=== PATIENT | male | born 1960 | race Caucasian/White ===

== ENCOUNTER 2017-05-11 17:52 | Inpatient (IN) | payer OTHER ==
[2017-05-11] VITALS (7 sets, daily range): BP systolic 110–209; BP diastolic 50–77; PULSE 126–143; RESP 16–20; TEMP 98.5–99.1; O2SAT 93–97
[2017-05-11] MEDS ORDERED: SODIUM CHLOR 0.9% 1000 ML INJ 1,000 ML IV ONE (18:15)
[2017-05-11] MEDS ORDERED: LABETALOL HCL 100 MG/20 ML VIAL IV PUSH ONE ×2 (18:15→19:00)
--- NOTE | 2017-05-11 18:27 | PD ---
HPI Chief Complaint: Cold / Flu Symptoms Time Seen by Provider: 18:05 Travel History International Travel<30 days: No Contact w/Intl Traveler<30days: No Traveled to known affect area: No History of Present Illness HPI PATIENT HAS BEEN FEELING SICK FOR PAST 3 WEEKS DURING WHICH TIME HE WAS DIAGNOSED WITH BRONCHITIS GIVEN [facility]PAK INITIALLY FOLLOWED BY MARY LOU AND FINALLY POSSIBLY BUZZ CASTRO WELL. PATIENT PRESENTS TODAY WITH OCC COUGH, SORE THROAT, CONGESTION, AND PALPITATIONS WHICH STARTED ABOUT 2 HRS AGO AND CHILLS WHICH STARTED 1 HR AGO. PCP IS NGHIA CHATTERJEE PULM:TANISHA ALL:DENIES PMHX:DM, HTN, GERD, AND BEING EVALUATED FOR COPD PSHX:T&A PFSH Past Medical History Diabetes: Yes Social History Tobacco Use: No Allergies-Medications (Allergen,Severity, Reaction): Coded Allergies: No Known Allergies (Unverified , 05/11/17) Reported Meds & Prescriptions Reported Meds & Active Scripts Active Reported Pioglitazone (Pioglitazone HCl) 30 Mg Tab 30 Mg PO DAILY Omeprazole 20 Mg Tab 20 Mg PO DAILY Trulicity Inj (Dulaglutide Inj) 1.5 Mg/0.5 Ml Pen 1.5 Mg SQ Q7D Novolin R Inj (Insulin Human Regular) 1,000 Unit/10 Ml Vial 100 Units SQ TID PRN Lisinopril-Hctz 10-12.5 Mg Tab 1 Tab PO DAILY Metoprolol-Hydrochlorothiazide 50-25 Mg Tab 1 Tab PO DAILY Review of Systems Except as stated in HPI: all other systems reviewed are Neg General / Constitutional: Positive: Chills Eyes: No: Visual changes HENT: Positive: Sore Throat, Rhinorrhea Cardiovascular: Positive: Palpitations Respiratory: Positive: Cough Gastrointestinal: No: Abdominal Pain Genitourinary: No: Dysuria Musculoskeletal: No: Pain Skin: No Rash Neurologic: No: Weakness Psychiatric: No: Depression Endocrine: No: Polydipsia Hematologic/Lymphatic: No: Easy Bruising Physical Exam Narrative GENERAL: patient has chills (repeat temp is oral 99.1)....TACHYCARDIC 140, BP= 209/77 SKIN: Warm and dry, no rashes noted thorughout body... HEAD: Atraumatic. Normocephalic. EYES: Pupils equal and round. No scleral icterus. No injection or drainage. ENT: No nasal bleeding or discharge. Mucous membranes pink and moist. NECK: Trachea midline. No JVD. CARDIOVASCULAR: Regular rhythm, tachycardic rate RESPIRATORY: No accessory muscle use. Clear to auscultation. RLL RONCHI/ CRACKLES GASTROINTESTINAL: Abdomen OBESE BUT soft, non-tender, nondistended. MUSCULOSKELETAL: Extremities without clubbing, cyanosis, or edema. No obvious deformities. NEUROLOGICAL: Awake and alert. No obvious cranial nerve deficits. Motor grossly within normal limits. Five out of 5 muscle strength in the arms and legs. Normal speech. PSYCHIATRIC: Appropriate mood and affect; insight and judgment normal. Data Data Last Documented VS Vital Signs Date Time Temp Pulse Resp B/P (MAP) Pulse Ox O2 Delivery O2 Flow Rate FiO2 05/11/17 20:32 136 16 137/63 (87) 93 05/11/17 18:45 Room Air 05/11/17 17:56 99.1 Orders Orders Electrocardiogram (05/11/17 18:15) Complete Blood Count With Diff (05/11/17 18:15) Comprehensive Metabolic Panel (05/11/17 18:15) Troponin I (05/11/17 18:15) B-Type Natriuretic Peptide (05/11/17 18:15) Prothrombin Time / Inr (Pt) (05/11/17 18:15) Act Partial Throm Time (Ptt) (05/11/17 18:15) Lipase (05/11/17 18:15) Thyroid Stimulating Hormone (05/11/17 18:15) Group A Rapid Strep Screen (05/11/17 18:15) Influenzae A/B Antigen (05/11/17 18:15) Iv Access Insert/Monitor (05/11/17 18:15) Ecg Monitoring (05/11/17 18:15) Oximetry (05/11/17 18:15) Sodium Chlor 0.9% 1000 Ml Inj (Ns 1000 M (05/11/17 18:15) Labetalol Inj (Trandate Inj) (05/11/17 18:15) Labetalol Inj (Trandate Inj) (05/11/17 19:00) Strep Culture (Group A) (05/11/17 18:30) Ct Pulmonary Angiogram (05/11/17 19:22) Iohexol 350 Inj (Omnipaque 350 Inj) (05/11/17 19:59) Lactic Acid Sepsis Protocol (05/11/17 20:30) Blood Culture (05/11/17 20:30) Blood Glucose (05/11/17 20:30) Oxygen Administration (05/11/17 20:30) Piperacil-Tazo 4.5 Gm Premix (Zosyn 4.5 (05/11/17 20:30) Azithromycin Inj (Zithromax Inj) (05/11/17 20:30) Doxycycline Inj (Vibramycin Inj) (05/11/17 20:45) Admit To Inpatient (05/11/17 ) Vital Signs (Adult) Q4H (05/11/17 21:13) Activity Oob With Assistance (05/11/17 21:13) Tube Bender / Telemetry .CONTINUOUS (05/11/17 21:13) Sodium Chloride 0.9% Flush (Ns Flush) (05/11/17 21:15) Sodium Chloride 0.9% Flush (Ns Flush) (05/12/17 09:00) Basic Metabolic Panel (Bmp) (05/12/17 06:00) Complete Blood Count With Diff (05/12/17 06:00) Pt Request For Service (05/11/17 21:13) Case Management Consult (05/11/17 21:13) Naloxone Inj (Narcan Inj) (05/11/17 21:15) Inpatient Certification (05/11/17 ) Albuterol-Ipratropium Neb (Duoneb Neb) (05/11/17 22:00) Albuterol-Ipratropium Neb (Duoneb Neb) (05/11/17 21:15) Piperacil-Tazo 4.5 Gm Premix (Zosyn 4.5 (05/12/17 02:00) Consult Pulmonology (05/11/17 ) Admit Order (Ed Use Only) (05/11/17 21:21) Labs Laboratory Tests Test 05/11/17 18:30 05/11/17 20:45 White Blood Count 14.9 TH/MM3 Red Blood Count 4.29 MIL/MM3 Hemoglobin 12.4 GM/DL Hematocrit 36.7 % Mean Corpuscular Volume 85.7 FL Mean Corpuscular Hemoglobin 29.0 PG Mean Corpuscular Hemoglobin Concent 33.8 % Red Cell Distribution Width 14.5 % Platelet Count 363 TH/MM3 Mean Platelet Volume 6.7 FL Neutrophils (%) (Auto) 82.3 % Lymphocytes (%) (Auto) 8.3 % Monocytes (%) (Auto) 7.4 % Eosinophils (%) (Auto) 0.3 % Basophils (%) (Auto) 1.7 % Neutrophils # (Auto) 12.2 TH/MM3 Lymphocytes # (Auto) 1.2 TH/MM3 Monocytes # (Auto) 1.1 TH/MM3 Eosinophils # (Auto) 0.0 TH/MM3 Basophils # (Auto) 0.3 TH/MM3 CBC Comment AUTO DIFF Differential Total Cells Counted 100 Neutrophils % (Manual) 77 % Band Neutrophils % 10 % Lymphocytes % 12 % Monocytes % 1 % Neutrophils # (Manual) 13.0 TH/MM3 Differential Comment FINAL DIFF MANUAL Platelet Estimate NORMAL Platelet Morphology Comment NORMAL Red Cell Morphology Comment NORMAL Prothrombin Time 11.3 SEC Prothromb Time International Ratio 1.1 RATIO Activated Partial Thromboplast Time 26.4 SEC Blood Urea Nitrogen 19 MG/DL Creatinine 1.10 MG/DL Random Glucose 238 MG/DL Total Protein 8.0 GM/DL Albumin 3.5 GM/DL Calcium Level 9.4 MG/DL Alkaline Phosphatase 89 U/L Aspartate Amino Transf (AST/SGOT) 20 U/L Alanine Aminotransferase (ALT/SGPT) 29 U/L Total Bilirubin 0.5 MG/DL Sodium Level 133 MEQ/L Potassium Level 4.4 MEQ/L Chloride Level 96 MEQ/L Carbon Dioxide Level 29.8 MEQ/L Anion Gap 7 MEQ/L Estimat Glomerular Filtration Rate 69 ML/MIN Troponin I LESS THAN 0.02 NG/ML B-Type Natriuretic Peptide 3 PG/ML Lipase 190 U/L Thyroid Stimulating Hormone 3rd Gen 1.900 uIU/ML Lactic Acid Level 1.9 mmol/L [facility] Medical Decision Making Medical Screen Exam Complete: Yes Emergency Medical Condition: Yes Medical Record Reviewed: Yes Interpretation(s) PULSE OX : ON ROOM AIR, EXCELLENT PLETH WAVE, 96% NORMAL PULSE OX EKG: SINUS TACHY, 137, NORMAL INTERVALS, NO STEMI PATTERN Differential Diagnosis STREP V FLU V PNA V PERICARDIAL EFFUSION V PE Narrative Course DUE TO TACHYCARDIA AND HYPERTENSION PATIENT WILL BE GIVEN SOME FLUID IV WELL A LOW DOSE OF LABETALOL. Critical Care Narrative CRITICAL CARE NOTE: With evaluation of the patient, labs, EKG, receipt of radiologic studies, administration of medications, reevaluation the patient and discussion of the patient with the admitting physicians, the total critical care time was [30] minutes. Time to perform other separately billable procedures was not included in the critical care time. Sepsis Criteria SIRS Criteria (2 or more): Temp > 100.9 or < 96.8, Heart rate over 90, WBC > 39087, < 4000 or > 10% bands Diagnosis Primary Impression: LLL pneumonia Qualified Codes: J18.1 - Lobar pneumonia, unspecified organism Additional Impressions: tachycardia hypoxemia Admitting Information Admitting Physician Requests: Observation Kevin Tinajero MD May 11, 2017 18:27
[2017-05-11 18:53] LABS: AUTOMATED NEUTROPHIL # 12.2 TH/MM3 (1.8-7.7); BASOPHIL # 0.3 TH/MM3 (0-0.2); BASOPHIL % 1.7 % (0.0-2.0); EOSINOPHIL % 0.3 % (0.0-4.0); HEMATOCRIT 36.7 % (39.0-51.0); HEMOGLOBIN 12.4 GM/DL (13.0-17.0); LYMPH % 8.3 % (9.0-44.0); LYMPHOCYTE # 1.2 TH/MM3 (1.0-4.8); MEAN CELL VOLUME 85.7 FL (80.0-100.0); MEAN CORPUSCULAR HGB CONC 33.8 % (32.0-36.0); MEAN PLATELET VOLUME 6.7 FL (7.0-11.0); MONO % 7.4 % (0.0-8.0); MONOCYTE # 1.1 TH/MM3 (0-0.9); NEUT % 82.3 % (16.0-70.0); PLATELET COUNT 363 TH/MM3 (150-450); RED BLOOD COUNT 4.29 MIL/MM3 (4.50-5.90); RED CELL DISTRIBUTION WIDTH 14.5 % (11.6-17.2); WHITE BLOOD COUNT 14.9 TH/MM3 (4.0-11.0)
[2017-05-11 19:03] LABS: CHLORIDE 96 MEQ/L (98-107); SODIUM (NA) 133 MEQ/L (136-145)
[2017-05-11 19:05] LABS: INTERNATIONAL NORMALIZED RATIO 1.1 RATIO; PROTHROMBIN TIME - PATIENT 11.3 SEC (9.8-11.6)
[2017-05-11 19:06] LABS: CALCIUM 9.4 MG/DL (8.5-10.1)
[2017-05-11 19:07] LABS: ALBUMIN 3.5 GM/DL (3.4-5.0); BICARBONATE 29.8 MEQ/L (21.0-32.0); BLOOD UREA NITROGEN 19 MG/DL (7-18); GLUCOSE,RANDOM 238 MG/DL (74-106); LIPASE 190 U/L (73-393)
[2017-05-11 19:08] LABS: BANDS 10 % (0-6); LYMPHOCYTES 12 % (9-44); MONOCYTES 1 % (0-8); POLYS (SEG NEUTROPHILS) 77 % (16-70)
[2017-05-11 19:10] LABS: ALT (GPT) 29 U/L (12-78); AST (GOT) 20 U/L (15-37); GLOMERULAR FILTRATION RATE 69 ML/MIN (>89)
[2017-05-11 19:11] LABS: TOTAL BILIRUBIN ADULT 0.5 MG/DL (0.2-1.0)
[2017-05-11 19:13] LABS: ALKALINE PHOSPHATASE 89 U/L (45-117)
[2017-05-11 19:15] LABS: TROPONIN I LESS THAN 0.02 NG/ML (0.02-0.05)
[2017-05-11] MEDS ORDERED: METO50TA10 PO (19:30)
[2017-05-11] MEDS ORDERED: NOVORP2 SQ (19:30)
[2017-05-11] MEDS ORDERED: LISI10TA PO (19:30)
[2017-05-11] MEDS ORDERED: DULA0.5I SQ (19:30)
[2017-05-11] MEDS ORDERED: PIOG30TA4 PO (19:30)
[2017-05-11] MEDS ORDERED: OMEP20TA93 PO (19:30)
--- NOTE | 2017-05-11 19:33 | EKG ---
Date Performed: 05/11/2017 Time Performed: 18:10:42 PTAGE: 56 years EKG: SINUS TACHYCARDIA ABNORMAL RHYTHM ECG Compared to prior electrocardiogram, rate has increas ed PREVIOUS TRACING : 08/26/2010 09.17 DOCTOR: Enzo Andersen Interpretating Date/Time 05/11/2017 19:32:50
[2017-05-11] MEDS ORDERED: IOHEXOL 350 MG/ML 10 ML VIAL (for RAD DIAG) IVCONTRAST ONE (19:59)
--- NOTE | 2017-05-11 20:14 | RADRPT ---
EXAM DATE/TIME: 05/11/2017 19:49 [facility] COMPARISON: No previous studies available for comparison. INDICATIONS : Fever and cough x 3 weeks. IV CONTRAST: 100 cc Omnipaque 350 (iohexol) IV RADIATION DOSE: 21.75 CTDIvol (mGy) ; Patient body habitus MEDICAL HISTORY : Diabetes mellitus type 2. Gastroesophageal reflux disease. Hypertension. SURGICAL HISTORY : None. ENCOUNTER: Initial ACUITY: 3 weeks PAIN SCALE: 0/10 LOCATION: chest TECHNIQUE: Volumetric scanning of the chest was performed using a pulmonary embolism protocol MIP images were re constructed. Using automated exposure control and adjustment of the mA and/or kV according to patien t size, radiation dose was kept as low as reasonably achievable to obtain optimal diagnostic quality images. DICOM format image data is available electronically for review and comparison. Follow-up recommendations for detected pulmonary nodules are based at a minimum on nodule size and pa tient risk factors according to Fleischner Society Guidelines. FINDINGS: PULMONARY ARTERIES: No filling defects are seen in the pulmonary arteries through the segmental level. LUNGS: There is an intra-alveolar infiltrate within the left base. Remaining lungs are clear. Calcified gran uloma within the left midlung. PLEURAE: There is no pleural thickening or pleural effusion. MEDIASTINUM: There is good visualization of the great vessels of the middle mediastinum. No evidence of mediastin al or hilar adenopathy/mass. MUSCULOSKELETAL: Within normal limits for patient age. MISCELLANEOUS: Calcified gallstones partially visualized. CONCLUSION: 1. No pulmonary emboli. 2. Left lower lobe infiltrate. 3. Cholelithiasis. Jose Roberto Laurent Jr., MD on May 11, 2017 at 20:11 Board Certified Radiologist. This report was verified electronically.
[2017-05-11] MEDS ORDERED: AZITHROMYCIN INJ 500 MG in SODIUM CHLOR 0.9% 250 ML INJ 250 ML IV STA (20:30)
[2017-05-11] MEDS ORDERED: PIPERACIL-TAZO 4.5 GM PREMIX 100 ML IV STA (20:30)
[2017-05-11] MEDS ORDERED: DOXYCYCLINE INJ 100 MG in SODIUM CHLORIDE 0.9% INJ 100 ML IV ONE (20:45)
[2017-05-11] MEDS ORDERED: RESP: ALBUTEROL 2.5 MG/IPRATROPIUM 0.5 MG NEB (PRN) NEB (21:15)
[2017-05-11] MEDS ORDERED: NALOXONE HCL 0.4 MG/ML AMP IV PUSH PRN (21:15)
[2017-05-11] MEDS ORDERED: SODIUM CHLORIDE 0.9% FLUSH 10 ML FLUSH IV FLUSH PRN (21:15)
[2017-05-11] MEDS: RESP: ALBUTEROL 2.5 MG/IPRATROPIUM 0.5 MG NEB (SCH) NEB (22:19)
[2017-05-12] VITALS (11 sets, daily range): BP systolic 112–144; BP diastolic 65–77; PULSE 104–136; RESP 18–20; TEMP 97.9–99.8; O2SAT 92–97
[2017-05-12] MEDS: PIPERACIL-TAZO 4.5 GM PREMIX 100 ML IV SCH ×2 (01:21→08:00)
[2017-05-12] MEDS: RESP: ALBUTEROL 2.5 MG/IPRATROPIUM 0.5 MG NEB (SCH) NEB ×4 (03:47→21:37)
[2017-05-12 06:58] LABS: BICARBONATE 31.1 MEQ/L (21.0-32.0); CALCIUM 8.8 MG/DL (8.5-10.1)
[2017-05-12 07:00] LABS: AUTOMATED NEUTROPHIL # 19.7 TH/MM3 (1.8-7.7); BASOPHIL % 0.1 % (0.0-2.0); EOSINOPHIL % 0.1 % (0.0-4.0); HEMATOCRIT 34.9 % (39.0-51.0); HEMOGLOBIN 11.5 GM/DL (13.0-17.0); LYMPH % 8.9 % (9.0-44.0); LYMPHOCYTE # 2.2 TH/MM3 (1.0-4.8); MEAN PLATELET VOLUME 7.3 FL (7.0-11.0); MONO % 9.3 % (0.0-8.0); MONOCYTE # 2.3 TH/MM3 (0-0.9); NEUT % 81.6 % (16.0-70.0); PLATELET COUNT 344 TH/MM3 (150-450); RED BLOOD COUNT 3.96 MIL/MM3 (4.50-5.90); RED CELL DISTRIBUTION WIDTH 15.4 % (11.6-17.2); WHITE BLOOD COUNT 24.2 TH/MM3 (4.0-11.0)
[2017-05-12 07:02] LABS: CREATININE 1.2 MG/DL (0.60-1.30)
[2017-05-12] MEDS: SODIUM CHLORIDE 0.9% FLUSH 10 ML FLUSH IV FLUSH SCH ×2 (09:00→21:00)
--- NOTE | 2017-05-12 11:26 | HHI.HP ---
[facility]Staff Admission Diagnosis LLL PNA, HYPOXEMIA, SINUS TACHYCARDIA& HTN Diagnoses: Chief Complaint: Cough, sore throat, congestion Travel History International Travel<30 Days: No Contact w/Intl Traveler <30 Da: No Traveled to Known Affected Are: No Review of Systems As per history of present illness, other systems reviewed by me and negative Past Family Social History Past Medical History Diabetes mellitus Hypertension Past Surgical History Tonsillectomy Reported Medications Reported Meds & Active Scripts Active Reported Pioglitazone (Pioglitazone HCl) 30 Mg Tab 30 Mg PO DAILY Omeprazole 20 Mg Tab 20 Mg PO DAILY Trulicity Inj (Dulaglutide Inj) 1.5 Mg/0.5 Ml Pen 1.5 Mg SQ Q7D Novolin R Inj (Insulin Human Regular) 1,000 Unit/10 Ml Vial 100 Units SQ TID PRN Lisinopril-Hctz 10-12.5 Mg Tab 1 Tab PO DAILY Metoprolol-Hydrochlorothiazide 50-25 Mg Tab 1 Tab PO DAILY Allergies: Coded Allergies: No Known Allergies (Unverified , 05/11/17) Active Ordered Medications Current Medications Medications (Trade) Dose Ordered Sig/James Route Start Time Stop Time Status Last Admin (NS Flush) 2 ml UNSCH PRN IV FLUSH 05/11/17 21:15 (NS Flush) 2 ml BID IV FLUSH 05/12/17 09:00 (Narcan Inj) 0.4 mg UNSCH PRN IV PUSH 05/11/17 21:15 (Duoneb Neb) 1 ampule Q6HR NEB NEB 05/11/17 22:00 05/12/17 09:15 (Duoneb Neb) 1 ampule Q2HR NEB PRN NEB 05/11/17 21:15 Piperacillin Sod/ Tazobactam Sod 100 ml @ 200 mls/hr Q6H IV 05/12/17 02:00 05/12/17 08:00 Family History Family history of diabetes. Denies family history of cancer. Social History The patient denies smoking, patient drinks alcohol rarely, denies illicit drug use. The patient is and has 1 grownup child. Physical Exam Vital Signs Vital Signs Date Time Temp Pulse Resp B/P (MAP) Pulse Ox O2 Delivery O2 Flow Rate FiO2 05/12/17 09:17 92 Nasal Cannula 21 05/12/17 08:00 99.8 114 20 141/68 (92) 94 05/12/17 04:00 97.9 108 18 112/65 (81) 95 05/12/17 03:47 95 21 05/12/17 00:15 136 05/12/17 00:00 97.9 108 18 112/65 (81) 95 05/11/17 22:19 94 Nasal Cannula 2.00 05/11/17 21:58 98.5 126 15 110/50 (70) 100 Nasal Cannula 2.00 05/11/17 21:55 Nasal Cannula 2.00 05/11/17 20:32 136 16 137/63 (87) 93 05/11/17 19:00 126 05/11/17 18:45 134 20 149/57 (87) 94 Room Air 05/11/17 18:45 138 18 161/70 (100) 96 Room Air 05/11/17 18:00 141 20 209/77 (121) Room Air 05/11/17 18:00 96 Room Air 05/11/17 17:56 99.1 143 20 169/71 (103) 97 Physical Exam GENERAL: This is a well-nourished, well-developed patient, in no apparent distress. SKIN: No rashes, ecchymoses or lesions. Cool and dry. HEAD: Atraumatic. Normocephalic. No temporal or scalp tenderness. EYES: Pupils equal round and reactive. Extraocular motions intact. No scleral icterus. No injection or drainage. ENT: Nose without bleeding, purulent drainage or septal hematoma. Throat without erythema, tonsillar hypertrophy or exudate. Uvula midline. Airway patent. NECK: Trachea midline. No JVD or lymphadenopathy. Supple, nontender, no meningeal signs. CARDIOVASCULAR: Regular rate and rhythm without murmurs, gallops, or rubs. RESPIRATORY: Clear to auscultation. Breath sounds equal bilaterally. No wheezes , rales, or rhonchi. GASTROINTESTINAL: Abdomen soft, non-tender, nondistended. No hepato-splenomegaly , or palpable masses. No guarding. MUSCULOSKELETAL: Extremities without clubbing, cyanosis, or edema. No joint tenderness, effusion, or edema noted. No calf tenderness. Negative Homans sign bilaterally. NEUROLOGICAL: Awake and alert. Cranial nerves II through XII intact. Motor and sensory grossly within normal limits. Five out of 5 muscle strength in all muscle groups. Normal speech. Laboratory Laboratory Tests Test 05/11/17 18:30 05/11/17 20:45 05/12/17 05:06 White Blood Count 14.9 24.2 Red Blood Count 4.29 3.96 Hemoglobin 12.4 11.5 Hematocrit 36.7 34.9 Mean Corpuscular Volume 85.7 88.0 Mean Corpuscular Hemoglobin 29.0 29.0 Mean Corpuscular Hemoglobin Concent 33.8 33.0 Red Cell Distribution Width 14.5 15.4 Platelet Count 363 344 Mean Platelet Volume 6.7 7.3 Neutrophils (%) (Auto) 82.3 81.6 Lymphocytes (%) (Auto) 8.3 8.9 Monocytes (%) (Auto) 7.4 9.3 Eosinophils (%) (Auto) 0.3 0.1 Basophils (%) (Auto) 1.7 0.1 Neutrophils # (Auto) 12.2 19.7 Lymphocytes # (Auto) 1.2 2.2 Monocytes # (Auto) 1.1 2.3 Eosinophils # (Auto) 0.0 0.0 Basophils # (Auto) 0.3 0.0 CBC Comment AUTO DIFF AUTO DIFF Differential Total Cells Counted 100 Neutrophils % (Manual) 77 Band Neutrophils % 10 Lymphocytes % 12 Monocytes % 1 Neutrophils # (Manual) 13.0 Differential Comment FINAL DIFF MANUAL AUTO DIFF CONFIRMED Platelet Estimate NORMAL Platelet Morphology Comment NORMAL Red Cell Morphology Comment NORMAL Prothrombin Time 11.3 Prothromb Time International Ratio 1.1 Activated Partial Thromboplast Time 26.4 Blood Urea Nitrogen 19 18 Creatinine 1.10 1.20 Random Glucose 238 303 Total Protein 8.0 Albumin 3.5 Calcium Level 9.4 8.8 Alkaline Phosphatase 89 Aspartate Amino Transf (AST/SGOT) 20 Alanine Aminotransferase (ALT/SGPT) 29 Total Bilirubin 0.5 Sodium Level 133 134 Potassium Level 4.4 4.5 Chloride Level 96 97 Carbon Dioxide Level 29.8 31.1 Anion Gap 7 6 Estimat Glomerular Filtration Rate 69 63 Troponin I LESS THAN 0.02 B-Type Natriuretic Peptide 3 Lipase 190 Thyroid Stimulating Hormone 3rd Gen 1.900 Lactic Acid Level 1.9 Date/Time Source Procedure Growth Status 05/11/17 20:30 Blood Peripheral Aerobic Blood Culture - Preliminary NO GROWTH IN 1 DAY Resulted 05/11/17 20:30 Blood Peripheral Anaerobic Blood Culture - Preliminary NO GROWTH IN 1 DAY Resulted 05/11/17 18:30 Throat Group A Streptococcus Screen Pending Received Result Diagram: 05/12/17 0506 05/12/17 [address] Angiography 05/11/17 1922 Signed Impressions: Service Date/Time: April 19:49 - CONCLUSION: 1. No pulmonary emboli. 2. Left lower lobe infiltrate. 3. Cholelithiasis. Jose Roberto Laurent Jr., MD Reviewed by [place] VTE Risk Assessment Caprini VTE Risk Assessment: Mod/High Risk (score >= 2) Caprini Risk Assessment Model Point Value = 1 Point Value = 2 Point Value = 3 Point Value = 5 Age 41-60 Minor surgery BMI > 25 kg/m2 Swollen legs Varicose veins or History of unexplained or recurrent spontaneous Oral contraceptives or hormone replacement Sepsis (< 1 month) Serious lung disease, including pneumonia (< 1 month) Abnormal pulmonary function Acute myocardial infarction Congestive heart failure (< 1 month) History of inflammatory bowel disease Medical patient at bed rest Age 61-74 Arthroscopic surgery Major open surgery (> 45 min) Laparoscopic surgery (> 45 min) Malignancy Confined to bed (> 72 hours) Immobilizing plaster cast Central venous access Age >= 75 History of VTE Family history of VTE Factor V Leiden Prothrombin [id number] Lupus anticoagulant Anticardiolipin antibodies Elevated serum homocysteine Heparin-induced thrombocytopenia Other congenital or acquired thrombophilia Stroke (< 1 month) Elective arthroplasty Hip, pelvis, or leg fracture Acute spinal cord injury (< 1 month) Prophylaxis Regimen Total Risk Factor Score Risk Level Prophylaxis Regimen 0-1 Low Early ambulation 2 Moderate Order ONE of the following: *Sequential Compression Device (SCD) *Heparin 5000 units SQ BID 3-4 Higher Order ONE of the following medications: *Heparin 5000 units SQ TID *Enoxaparin/Lovenox 40 mg SQ daily (WT < 150 kg, CrCl > 30 mL/min) *Enoxaparin/Lovenox 30 mg SQ daily (WT < 150 kg, CrCl > 10-29 mL/min) *Enoxaparin/Lovenox 30 mg SQ BID (WT < 150 kg, CrCl > 30 mL/min) AND/OR *Sequential Compression Device (SCD) 5 or more Highest Order ONE of the following medications: *Heparin 5000 units SQ TID (Preferred with Epidurals) *Enoxaparin/Lovenox 40 mg SQ daily (WT < 150 kg, CrCl > 30 mL/min) *Enoxaparin/Lovenox 30 mg SQ daily (WT < 150 kg, CrCl > 10-29 mL/min) *Enoxaparin/Lovenox 30 mg SQ BID (WT < 150 kg, CrCl > 30 mL/min) AND *Sequential Compression Device (SCD) Assessment and Plan Problem List: (1) Sepsis ICD Code: A41.9 - Sepsis, unspecified organism Plan: Sepsis present on admission, patient with leukocytosis, bandemia, tachycardia Given oral doxycycline, IV Zosyn and IV azithromycin in the emergency department. Will place patient on IV Rocephin and IV azithromycin. Start on IV fluids. (2) LLL pneumonia ICD Code: J18.1 - Lobar pneumonia, unspecified organism Status: Acute Plan: As evidence by CT shown above. IV antibiotics Supplemental oxygen to keep oxygen saturation 100% DuoNeb treatments (3) Leukocytosis ICD Code: D72.829 - Elevated white blood cell count, unspecified Plan: The previously elevated on admission 14.9 with 10% bands. Repeat CBC today shows increasing white blood cell count 24.2. Monitor WBC. (4) Diabetes mellitus with hyperglycemia ICD Code: E11.65 - Type 2 diabetes mellitus with hyperglycemia Plan: We'll place on disability insulin NovoLog Monitor Accu-Cheks Continue by mouth Trulicity and Pioglitzone (5) Hyponatremia ICD Code: E87.1 - Hypo-osmolality and hyponatremia Plan: Likely due to pseudohyponatremia secondary to hyperglycemia. Monitor BMP. Assessment and Plan GI prophylaxis: PPI. DVT prophylaxis: SCDs will place on Lovenox subcutaneously. Code Status Full code Discussed Condition With Patient, RN. Physician Certification 2 Midnight Certification Type: Admission for Inpatient Services Order for Inpatient Services The services are ordered in accordance with Medicare regulations or non- Medicare payer requirements, as applicable. In the case of services not specified as inpatient-only, they are appropriately provided as inpatient services in accordance with the 2-midnight benchmark. Estimated LOS (days): 2 days is the estimated time the patient will need to remain in the hospital, assuming treatment plan goals are met and no additional complications. Post-Hospital Plan: Home Problem Qualifiers (1) LLL pneumonia: Qualified Codes: J18.1 - Lobar pneumonia, unspecified organism (2) Leukocytosis: Qualified Codes: D72.825 - Bandemia Irving Bedoya MD May 12, 2017 11:26
[2017-05-12] MEDS ORDERED: DEXTROSE 50% IN WATER 50 ML VIAL(D50) IV PUSH PRN (11:30)
[2017-05-12] MEDS ORDERED: GLUCAGON 1 MG/ML VIAL OTHER PRN (11:30)
[2017-05-12] MEDS: SODIUM CHLOR 0.9% 1000 ML INJ 1,000 ML IV SCH ×2 (11:30→22:47)
[2017-05-12] MEDS ORDERED: METOPROLOL HYDROCHLOROTHIAZIDE PO SCH (11:30)
[2017-05-12] MEDS ORDERED: PIOGLITAZONE HCL 30 MG TAB PO SCH (11:30)
[2017-05-12] MEDS: INSULIN ASPART SUPPLEMENTAL SCALE SQ SCH ×3 (12:00→21:00)
[2017-05-12] MEDS: PANTOPRAZOLE SOD 20 MG DELAYED RELEASE TAB PO SCH (12:56)
[2017-05-12] MEDS ORDERED: ENOXAPARIN SODIUM 40 MG/0.4 ML SYRINGE SQ SCH (13:00)
[2017-05-12] MEDS ORDERED: cefTRIAXone INJ 2,000 MG in SODIUM CHLORIDE 0.9% INJ 100 ML IV SCH (13:00)
[2017-05-12] MEDS ORDERED: AZITHROMYCIN INJ 500 MG in SODIUM CHLOR 0.9% 250 ML INJ 250 ML IV SCH (14:00)
[2017-05-12] MEDS: BUDESONIDE-FORMOTEROL 160/4.5 MCG INHALER INH SCH (21:00)
--- NOTE | 2017-05-12 21:20 | MB ---
cc: [facility] DATE OF CONSULTATION 05/12/17 REASON FOR CONSULTATION Pneumonia and respiratory distress. HISTORY OF PRESENT ILLNESS This is a 56-year-old extremely obese man with a history of diabetes, hypertension and prior history of chronic bronchitis WHO was brought to the emergency room since he was suffering from cough, chest congestion and burning sensation in the chest and throat associated with chills and fever over the past [id number] days. The patient initially started with an upper respiratory infection which got worse. He was seen at the [facility] and was suggested to go to the ER and subsequently admitted. A CT of the chest was done which showed no evidence of pulmonary emboli but showed an infiltrate in the left lung base. He was thus admitted and started on IV Rocephin and IV Zithromax. The patient is feeling better. He is on room air. His sats are 94 and he is coughing and bringing up very little mucus. Denies any hemoptysis but has had some leg swelling. PAST HISTORY 1. Hypertension 2. Diabetes, 3. History of tonsillectomy. 4. Suspected to have sleep apnea, but we will get a sleep study done next week. MEDICATIONS 1. Pioglitazone 30 mg daily, 2. Omeprazole 20 mg a day 3. Trulicity 1.5 mg subcu every 7 days 4. Lisinopril 10/12.5 mg daily, 5. Metoprolol 50/25 mg 1 tablet daily. HABITS The patient does not smoke. Drinks alcohol occasionally. Lives with his . ALLERGIES None listed. REVIEW OF SYSTEMS The patient is overweight. He has snoring and possible apnea. He has leg swelling. He has back pain and denies urinary symptoms. No GI symptoms. No headaches or blackouts. The other system review is negative. PHYSICAL EXAMINATION GENERAL: This is a very obese middle-aged white male who is alert and face was flushed. VITAL SIGNS: Blood pressure 140/80, pulse is 104, respirations 22, temperature 99.2 HEENT: Head normocephalic. Pupils are reactive and equal. Tongue dry. Throat is clear. Nasal mucosa is clear. NECK: Supple. No bruits or thyroid enlargement. CHEST: Equal movements with distant breath sounds, expiratory wheezes bilaterally and no definite crackles. HEART: Regular S1 and S2. No murmur. ABDOMEN: Soft, obese without masses, no organomegaly or tenderness. Bowel sounds are active. EXTREMITIES: Minimal edema with decreased pulses. NEUROLOGIC: Reflexes are 1+ with no gross motor deficits. Cranial nerves grossly intact. RECTAL: Exam is deferred. SKIN: No lesions are observed. IMPRESSION 1. Left lower lobe pneumonia with hypoxemia. 2. Sepsis resolving. 3. Leukocytosis 4. Diabetes mellitus type 2 5. Hypertension 6. Obstructive sleep apnea. PLAN The patient will be maintained on antibiotic coverage as ordered including Rocephin 2 grams IV daily and Zithromax 500 mg a day, Solu-Medrol 40 mg IV q.8 h was added. A chest x-ray to be repeated in the a.m. and to see if there is any significant infiltrate. The patient has been scheduled to have a sleep study as an outpatient as well as a pulmonary function study. Thus, he will possibly be switched to p.o. antibiotics if his clinical condition is table and his x-ray is improving. I have also added 160/4.5 two puffs twice a day. Thank you, Dr. Lainez, for this consultation. MD RAFA Lai/ /7:25 PM /8:57 PM
[2017-05-12] MEDS: methylPREDNISolone SOD SUCC 40 MG/1 ML VIAL IV PUSH SCH (21:24)
[2017-05-12] MEDS ORDERED: TEMAZEPAM 7.5 MG CAP PO ONE (22:45)
[2017-05-13] VITALS: BP 134/59; PULSE 116; RESP 20; TEMP 98.1; O2SAT 93
[2017-05-13] MEDS: RESP: ALBUTEROL 2.5 MG/IPRATROPIUM 0.5 MG NEB (SCH) NEB ×2 (03:30→09:52)
[2017-05-13 04:00] VITALS: BP 124/70; PULSE 107; RESP 20; TEMP 97.3; O2SAT 94
--- NOTE | 2017-05-13 06:24 | RADRPT ---
EXAM DATE/TIME: 05/13/2017 06:13 [facility] COMPARISON: No previous studies available for comparison. INDICATIONS : Edema. MEDICAL HISTORY : Diabetes mellitus type 2. Gastroesophageal reflux disease. Hypertension SURGICAL HISTORY : None. ENCOUNTER: Initial ACUITY: 3 weeks PAIN SCORE: 0/10 LOCATION: Bilateral chest FINDINGS: Linear parenchymal opacity in the left lung base. Low lung volumes exaggerating interstitial markings . Cardiomediastinal contours are within normal limits. Bony thorax is intact. CONCLUSION: 1. Linear left lower lobe airspace disease consistent with atelectasis. Kareem Melgoza MD on May 13, 2017 at 6:22 Board Certified Radiologist. This report was verified electronically.
[2017-05-13] MEDS: methylPREDNISolone SOD SUCC 40 MG/1 ML VIAL IV PUSH SCH (06:31)
[2017-05-13 08:00] VITALS: BP 134/73; PULSE 102; RESP 20; TEMP 98.1; O2SAT 92
[2017-05-13] MEDS: BUDESONIDE-FORMOTEROL 160/4.5 MCG INHALER INH SCH (08:31)
[2017-05-13] MEDS: INSULIN ASPART SUPPLEMENTAL SCALE SQ SCH ×2 (08:32→11:45)
[2017-05-13] MEDS: SODIUM CHLORIDE 0.9% FLUSH 10 ML FLUSH IV FLUSH SCH (08:32)
[2017-05-13] MEDS: PANTOPRAZOLE SOD 20 MG DELAYED RELEASE TAB PO SCH (08:33)
[2017-05-13] MEDS ORDERED: METOPROLOL TARTRATE 50 MG TAB PO SCH (09:00)
[2017-05-13] MEDS ORDERED: HYDROCHLOROTHIAZIDE 25 MG TAB PO SCH (09:00)
[2017-05-13] MEDS ORDERED: PIOGLITAZONE HCL 15 MG TAB PO SCH (09:00)
[2017-05-13 09:55] VITALS: O2SAT 94
[2017-05-13] MEDS: SODIUM CHLOR 0.9% 1000 ML INJ 1,000 ML IV SCH (10:58)
[2017-05-13] MEDS ORDERED: AZIT500T2 PO (11:50)
[2017-05-13] MEDS ORDERED: CEFU1TAB18 PO (11:50)
[2017-05-13] MEDS ORDERED: PRED10PA PO (11:50)
--- NOTE | 2017-05-13 11:51 | HHI.DCPOC ---
Discharge Care Plan Diagnosis: (1) Diabetes mellitus with hyperglycemia (2) Sepsis (3) PNA (pneumonia) Goals to Promote Your Health * To prevent worsening of your condition and complications * To maintain your health at the optimal level Directions to Meet Your Goals Take your medications as prescribed Follow your dietary instruction Follow activity as directed Keep your appointments as scheduled Take your immunizations and boosters as scheduled If your symptoms worsen call your PCP, if no PCP go to Urgent Care Center or Emergency Room Smoking is Dangerous to Your Health. Avoid second hand smoke Call the 24-hour hour crisis hotline for domestic abuse at Daniela Rosen MD May 13, 2017 11:51
[2017-05-13 12:00] VITALS: BP 146/84; PULSE 101; RESP 20; TEMP 96.8; O2SAT 94
--- NOTE | 2017-05-13 12:05 | HHI.DS ---
cc: Rhett Garcia Discharge Summary Admission Date May 11, 2017 at 21:22 Discharge Date: May 13, 2017 Admitting Diagnosis LLL PNA, HYPOXEMIA, SINUS TACHYCARDIA& HTN (1) Sepsis ICD Code: A41.9 - Sepsis, unspecified organism (2) LLL pneumonia ICD Code: J18.1 - Lobar pneumonia, unspecified organism Status: Acute (3) Leukocytosis ICD Code: D72.829 - Elevated white blood cell count, unspecified (4) Diabetes mellitus with hyperglycemia ICD Code: E11.65 - Type 2 diabetes mellitus with hyperglycemia (5) Hyponatremia ICD Code: E87.1 - Hypo-osmolality and hyponatremia Procedures none Brief History - From Admission Patient has been admitted through the ER due to 3 weeks of SOB and subjective fever at home for one week. He has been seen in the past month by his pulmonary and given IV abx as an out patient. He was better but appeared to have new pneumonia now. He is admitted for sepsis present on admission. CBC/BMP: 05/12/17 0506 05/12/17 0506 Significant Findings Laboratory Tests Test 05/11/17 18:30 05/11/17 20:45 05/12/17 05:06 White Blood Count 14.9 TH/MM3 (4.0-11.0) 24.2 TH/MM3 (4.0-11.0) Red Blood Count 4.29 MIL/MM3 (4.50-5.90) 3.96 MIL/MM3 (4.50-5.90) Hemoglobin 12.4 GM/DL (13.0-17.0) 11.5 GM/DL (13.0-17.0) Hematocrit 36.7 % (39.0-51.0) 34.9 % (39.0-51.0) Mean Platelet Volume 6.7 FL (7.0-11.0) Neutrophils (%) (Auto) 82.3 % (16.0-70.0) 81.6 % (16.0-70.0) Lymphocytes (%) (Auto) 8.3 % (9.0-44.0) 8.9 % (9.0-44.0) Neutrophils # (Auto) 12.2 TH/MM3 (1.8-7.7) 19.7 TH/MM3 (1.8-7.7) Monocytes # (Auto) 1.1 TH/MM3 (0-0.9) 2.3 TH/MM3 (0-0.9) Basophils # (Auto) 0.3 TH/MM3 (0-0.2) Neutrophils % (Manual) 77 % (16-70) Band Neutrophils % 10 % (0-6) Neutrophils # (Manual) 13.0 TH/MM3 (1.8-7.7) Blood Urea Nitrogen 19 MG/DL (7-18) Random Glucose 238 MG/DL (74-106) 303 MG/DL (74-106) Sodium Level 133 MEQ/L (136-145) 134 MEQ/L (136-145) Chloride Level 96 MEQ/L (98-107) 97 MEQ/L (98-107) Estimat Glomerular Filtration Rate 69 ML/MIN (>89) 63 ML/MIN (>89) Troponin I LESS THAN 0.02 NG/ML Monocytes (%) (Auto) 9.3 % (0.0-8.0) Imaging Last Impressions Chest X-Ray 05/13/17 0600 Signed Impressions: Service Date/Time: Saturday, May 13, 2017 06:13 - CONCLUSION: 1. Linear left lower lobe airspace disease consistent with atelectasis. Kareem Melgoza MD CT Angiography 05/11/17 1922 Signed Impressions: Service Date/Time: April 19:49 - CONCLUSION: 1. No pulmonary emboli. 2. Left lower lobe infiltrate. 3. Cholelithiasis. Jose Roberto Laurent Jr., MD PE at Discharge GENERAL: This is a well-nourished, well-developed patient, in no apparent distress. CARDIOVASCULAR: sinus tachy without murmurs, gallops, or rubs. RESPIRATORY: Clear to auscultation. Breath sounds equal bilaterally. No wheezes , rales, or rhonchi. GASTROINTESTINAL: Abdomen soft, non-tender, nondistended. Normal active bowel sounds MUSCULOSKELETAL: Extremities without clubbing, cyanosis, or edema. NEURO: Alert & Oriented x4 to person, place, time, situation. Moves all ext x4 Pt update on day of discharge Patient seen in follow up for pneumonia. Leukocytosis is present likely due to steroids Over night very much improved clinically DC plans discussed with patient and spouse Hospital Course patient seen and evaluated to follow up for Pneumonia with sepsis requiring IV Abx and IV steroids He was seen by Pulmonary He improved dramatically Hi heart rate is chronically elevated He will follow up with his Pulmonary Pt Condition on Discharge: Fair Discharge Disposition: Discharge Home Discharge Time: <= 30 minutes Discharge Instructions DIET: Follow Instructions for: Diabetic Diet Activities you can perform: Regular-No Restrictions Follow up Referrals: Pulmonology - 05/16/17 New Medications: Azithromycin (Azithromycin) 500 Mg Tab 500 MG PO DAILY for Infection, #5 TAB 0 Refills Cefuroxime (Ceftin) 250 Mg Tab 250 MG PO BID for Infection, #10 TAB Prednisone (21) 10 mg tab Dose Pack (Prednisone (21) 10 mg tab Dose Pack) 10 Mg Pack 10 MG PO DIRECTED for Inflammation, #1 DSPK 0 Refills Continued Medications: Dulaglutide Inj (Trulicity Inj) 1.5 Mg/0.5 Ml Pen 1.5 MG SQ Q7D for Blood Sugar Management, #4 PEN 0 Refills Insulin Human Regular Inj (Novolin R Inj) 1,000 Unit/10 Ml Vial 100 UNITS SQ TID PRN for BLOOD GLUCOSE < 70 MG/DL & NPO, #1 INJECTION 0 Refills Lisinopril-Hctz (Lisinopril-Hctz) 10-12.5 Mg Tab 1 TAB PO DAILY for Blood Pressure Management, #30 TAB 0 Refills Metoprolol-Hydrochlorothiazide (Metoprolol-Hydrochlorothiazide) 50-25 Mg Tab 1 TAB PO DAILY for Blood Pressure Management, #30 TAB 0 Refills Omeprazole (Omeprazole) 20 Mg Tab 20 MG PO DAILY, #30 TAB 0 Refills Pioglitazone (Pioglitazone) 30 Mg Tab 30 MG PO DAILY for Blood Sugar Management, #30 TAB 0 Refills Daniela Rosen MD May 13, 2017 12:05
[2017-05-15] MEDS ORDERED: DULAGLUTIDE 1.5 MG SQ SCH (09:00)
== END 2017-05-13 13:07 | disposition home or self-care (01) | DRG 871 ==
LOC: PHED 17:52 → PHEDA 21:22 → PH3A 22:36
PROVIDERS: ADMIT Hospitalist; ATTEND Hospitalist
DX: A41.9 Sepsis, unspecified organism (principal); J18.9 Pneumonia, unspecified organism; E87.1 Hypo-osmolality and hyponatremia; E11.65 Type 2 diabetes mellitus with hyperglycemia; I10 Essential (primary) hypertension; R09.02 Hypoxemia; R00.0 Tachycardia, unspecified; Z79.4 Long term (current) use of insulin; E66.9 Obesity, unspecified; G47.33 Obstructive sleep apnea (adult) (pediatric)
CPT/HCPCS: 71045; 71275; 80048; 80053; 82948; 83605; 83690; 83880; 84443; 84484; 85007; 85025; 85027; 85610; 85730; 87040; 87070; 87081; 87205; 87449; 87804; 87880; 93005; 94640; 94664; 96361; 96365; 96368; 96375; J0456; J0696; J1650; J1815; J2543; J2920; J7030; J7050; Q9967